=== PATIENT | male | born 1995 | race Caucasian/White ===

== ENCOUNTER 2023-03-06 21:24 | Emergency (ER) | payer MEDICAID, OTHER ==
[~2023-03-06] VITALS: Ht 172.7 cm; Wt 68.9 kg
[2023-03-06] MEDS ORDERED: SUBO8MIS SL (21:38)
[2023-03-07 00:33] VITALS: BP 111/67; TEMP 98; O2SAT 99
[2023-03-07] MEDS ORDERED: BACT800T5 PO (01:08)
[2023-03-07] MEDS ORDERED: BACTRIM 160MG/800MG DS TAB PO ONE (01:10)
== END 2023-03-07 01:17 | disposition home or self-care (01) ==
LOC: M ED 21:24 → EEVIPCON 21:24 → M ED 03-07 01:17
DX: L03.312 Cellulitis of back [any part except buttock and flank] (principal); F12.10 Cannabis abuse, uncomplicated; F17.200 Nicotine dependence, unspecified, uncomplicated; Z79.2 Long term (current) use of antibiotics; Z79.899 Other long term (current) drug therapy